=== PATIENT | male | born 1955 | race Caucasian/White ===

== ENCOUNTER → 2019-02-11 | Outpatient (CLI) | payer BC ==
[~2019-02-11] MED LIST: LISI10TA2 PO
--- NOTE | 2019-02-11 12:52 | Diagnostic Imaging Report ---
EXAMINATION: PA and lateral chest at 11:43 a.m. INDICATION: Cough. FINDINGS: There are no prior studies available for comparison. The heart size is at the upper limits of normal. The lungs are clear. There is no evidence for failure, pneumonia, or pleural effusion. The mediastinum is not widened. The osseous structures are intact. IMPRESSION: There is no evidence for an acute cardiopulmonary abnormality. Dictated by: Dictated on workstation # [id number]
== END ==
LOC: RAD 11:31
PROVIDERS: ATTEND Nurse Practitioner Family
DX: R05 Cough (principal)
CPT/HCPCS: 71046

== ENCOUNTER → 2019-10-16 | Outpatient (CLI) | payer BC ==
--- NOTE | 2019-10-16 11:21 | Diagnostic Imaging Report ---
INDICATION: Elbow pain. 3 views were obtained FINDINGS: The alignment is grossly normal. There is an anterior sail sign suggesting an elbow joint effusion. There is focal irregularity of the coronoid. Minimally displaced coronary process fracture cannot be excluded. No other fracture or dislocation. IMPRESSION: Elbow joint effusion and cortical irregularity of the coronoid suspect for fracture. Recommend further evaluation with CT elbow. Dictated by: Dictated on workstation # [id number]
== END ==
LOC: RAD 10:42
PROVIDERS: ATTEND Family Medicine
DX: M25.522 Pain in left elbow (principal); M25.422 Effusion, left elbow
CPT/HCPCS: 73080